=== PATIENT | female | born 1980 | race African-American/Black ===

== ENCOUNTER 2017-08-21 01:59 | Emergency (ER) | payer MEDICAID ==
[~2017-08-21] VITALS: Ht 147.3 cm; Wt 70.8 kg
[2017-08-21 02:20] VITALS: BP 152/82
== END 2017-08-21 03:28 | disposition home or self-care (01) ==
LOC: ER 01:59
DX: T16.2XXA Foreign body in left ear, initial encounter (principal); X58.XXXA Exposure to other specified factors, initial encounter; Y93.89 Activity, other specified; Y92.89 Other specified places as the place of occurrence of the external cause; Y99.8 Other external cause status
CPT/HCPCS: 69200